=== PATIENT | male | born 1960 | race Caucasian/White ===

== ENCOUNTER 2020-05-24 15:30 | Inpatient (IN) | payer BC, MEDICAID, OTHER ==
[~2020-05-24] VITALS: Ht 182.9 cm; Wt 99.9 kg
--- NOTE | 2020-05-24 16:21 | NUR ---
SPINDLE PLUMBER: PT TO ROOM FROM LOBBY
[2020-05-24 16:27] LABS: ALANINE AMINOTRANSFERASE 50 U/L (12-78); ALBUMIN 3.5 g/dL (3.4-5.0); ANION GAP 7 mmol/L (5-15); BASOPHILS % (AUTO) 1 % (0-1); CALCIUM 8.5 mg/dL (8.5-10.1); CHLORIDE 105 mmol/L (98-107); CREATININE 1.22 mg/dL (0.7-1.3); EOSINOPHILS % (AUTO) 0 % (1-7); LYMPHOCYTES % (AUTO) 12 % (22-44); MEAN CORPUSCULAR HEMOGLOBIN 31.3 pg (27.5-34.5); MEAN CORPUSCULAR HGB CONC 32.8 g/dL (33.2-36.2); MEAN PLATELET VOLUME 8.4 fL (7.4-10.4); MONOCYTES % (AUTO) 14 % (2-9); NEUTROPHILS % (AUTO) 74 % (42-75); PLATELET COUNT 239 x10^3/uL (130-400); RED BLOOD COUNT 4.73 x10^6/uL (4.38-5.82); RED CELL DISTRIBUTION WIDTH 13.9 % (9.4-14.8)
[2020-05-24 16:31] LABS: ALKALINE PHOSPHATASE 136 U/L (45-117); BILIRUBIN,TOTAL 1.9 mg/dL (0.2-1.0); TOTAL PROTEIN 6.9 g/dL (6.4-8.2); TROPONIN I 0.017 ng/mL (0.000-0.045)
[2020-05-24] MEDS ORDERED: TAMS-11 PO (16:39)
[2020-05-24] MEDS ORDERED: MORPHINE SULFATE 4 MG/ML, 1ML ONE (16:56)
[2020-05-24] MEDS ORDERED: ONDANSETRON 2MG/ML, 2ML ONE (16:56)
[2020-05-24 16:59] LABS: MD SCAN
[2020-05-24] MEDS ORDERED: SODIUM CHLORIDE FLUSH 10ML SYR IVF ONE (17:00)
[2020-05-24] MEDS ORDERED: ONDANSETRON 2MG/ML, 2ML IVPush ONE ×2 (17:00→18:00)
[2020-05-24] MEDS ORDERED: MORPHINE SULFATE 4 MG/ML, 1ML IVPush PRN ×2 (17:00→18:00)
--- NOTE | 2020-05-24 17:21 | NUR ---
pt was med as noted for pain 10/10. Pt now rates pain 8/10. ER PROVIDER EVAL PENDING
--- NOTE | 2020-05-24 17:30 | NUR ---
ER PROVIDER AT BEDSIDE. PT ASSESSMENT, POC DISCUSSED AND QUESTIONS ANSWERED.
[2020-05-24] MEDS ORDERED: HYDROmorphone 1 MG/ML, 1ML INJ ONE (17:35)
[2020-05-24 17:44] LABS: HCT (SEDRATE) 45.2 % (39.2-51.8)
--- NOTE | 2020-05-24 17:44 | NUR ---
PT MED NOTED. 02 2L NC PLACED, CALL LIGHT W/I REACH
[2020-05-24] MEDS ORDERED: PIPERACILLIN/TAZO/PMX 3.375GM 50 ML IV ONE (18:00)
[2020-05-24] MEDS ORDERED: VANCOMYCIN PER PHARMACY MC PRN ×2 (18:00→22:00)
[2020-05-24] MEDS ORDERED: HYDROmorphone 1 MG/ML, 1ML INJ IVPush PRN (18:00)
[2020-05-24] MEDS ORDERED: PIPERACILLIN/TAZO/PMX 3.375GM 50 ML ONE (18:22)
[2020-05-24] MEDS ORDERED: VANCOMYCIN 2,500 MG in SODIUM CHLORIDE 0.9% 500 ML IV ONE (19:00)
--- NOTE | 2020-05-24 19:32 | NUR ---
BEDSIDE REPORT FROM LORA BECKWITH.
[2020-05-24] MEDS ORDERED: SODIUM CHLORIDE FLUSH 10ML SYR IVF PRN (20:30)
--- NOTE | 2020-05-24 21:49 | NUR ---
REPORT GIVEN TO YESENIA BECKWITH.
[2020-05-24] MEDS ORDERED: DOCUSATE 100 MG CAPSULE PO PRN (22:00)
[2020-05-24] MEDS ORDERED: ONDANSETRON 2MG/ML, 2ML IVPush PRN (22:00)
[2020-05-24] MEDS ORDERED: ACETAMINOPHEN 325 MG TABLET PO PRN (22:00)
[2020-05-24] MEDS ORDERED: LABETALOL 5MG/ML, 20ML IVPush PRN (22:00)
[2020-05-24 22:16] VITALS: BP 130/98
[2020-05-24] MEDS: NICOTINE 7 MG/24 HR PATCH.TD24 TD SCH (22:20)
[2020-05-24] MEDS: ENOXAPARIN 40 MG/0.4 ML SQ SCH (22:21)
[2020-05-24] MEDS ORDERED: PHARMACOKINETIC MONITORING MC PRN (22:30)
[2020-05-24] MEDS: PIPERACILLIN/TAZO/PMX 3.375GM 50 ML IV SCH (23:57)
[2020-05-25 00:33] VITALS: BP 142/107
[2020-05-25 01:42] VITALS: BP 140/104
[2020-05-25] MEDS: PIPERACILLIN/TAZO/PMX 3.375GM 50 ML IV SCH ×3 (05:40→11:45)
[2020-05-25 05:48] LABS: BASOPHILS % (AUTO) 0 % (0-1); EOSINOPHILS % (AUTO) 0 % (1-7); LYMPHOCYTES % (AUTO) 10 % (22-44); MEAN CORPUSCULAR HEMOGLOBIN 31.5 pg (27.5-34.5); MEAN CORPUSCULAR HGB CONC 32.7 g/dL (33.2-36.2); MEAN PLATELET VOLUME 8.8 fL (7.4-10.4); MONOCYTES % (AUTO) 14 % (2-9); NEUTROPHILS % (AUTO) 75 % (42-75); PLATELET COUNT 246 x10^3/uL (130-400); RED BLOOD COUNT 4.73 x10^6/uL (4.38-5.82)
[2020-05-25 05:57] LABS: CHLORIDE 103 mmol/L (98-107)
[2020-05-25 06:08] LABS: ANION GAP 8 mmol/L (5-15); CALCIUM 8.5 mg/dL (8.5-10.1); CREATININE 1.41 mg/dL (0.7-1.3)
[2020-05-25 06:27] LABS: MD SCAN
[2020-05-25 07:27] VITALS: BP 122/91
[2020-05-25] MEDS ORDERED: LORazepam 2 MG/ML, 1ML IV PRN ×5 (08:00)
[2020-05-25] MEDS ORDERED: ONDANSETRON 4 MG TABLET PO PRN (08:00)
[2020-05-25] MEDS ORDERED: BISACODYL 10 MG SUPP PR PRN (08:00)
[2020-05-25] MEDS ORDERED: DOCUSATE 100 MG CAPSULE PO PRN (08:00)
[2020-05-25] MEDS ORDERED: ONDANSETRON 2MG/ML, 2ML IVPush PRN (08:00)
[2020-05-25] MEDS: TAMSULOSIN 0.4 MG CAP.ER.24H PO SCH (08:04)
[2020-05-25] MEDS: VANCOMYCIN 1,900 MG in SODIUM CHLORIDE 0.9% 250 ML IV SCH ×2 (08:04→19:56)
[2020-05-25] MEDS: HYDROmorphone 1 MG/ML, 1ML INJ IV PRN ×3 (08:10→22:09)
[2020-05-25] MEDS: MULTIVITAMINS/MINERALS TABLET PO SCH (09:54)
[2020-05-25] MEDS: MAGNESIUM CHLORIDE 64 MG TABLET.DR PO SCH ×3 (09:54→21:46)
[2020-05-25 10:01] LABS: TROPONIN I 0.016 ng/mL (0.000-0.045)
[2020-05-25 13:26] LABS: TROPONIN I < 0.015 ng/mL (0.000-0.045)
[2020-05-25] MEDS: OXYcodone IR 5MG TABLET PO PRN (13:52)
[2020-05-25 14:12] VITALS: BP 132/101
[2020-05-25] MEDS ORDERED: GADOTERATE 10 MMOL/20 ML VIAL ONE (17:02)
[2020-05-25] MEDS: CEFTRIAXONE PMX 2GM/50ML 50 ML IVPB SCH (18:00)
[2020-05-25 18:02] LABS: TROPONIN I < 0.015 ng/mL (0.000-0.045)
[2020-05-25 19:40] LABS: AMPHETAMINE SCREEN, URINE Positive (Negative); BARBITURATE SCREEN, URINE Negative (Negative); BENZODIAZEPINE SCREEN, URINE Negative (Negative); CANNABINOID SCREEN, URINE Negative (Negative); COCAINE SCREEN, URINE Negative (Negative); METHADONE SCREEN, URINE Negative (Negative); OPIATE SCREEN, URINE Positive (Negative)
[2020-05-25 19:42] VITALS: BP 139/84
[2020-05-25 19:46] LABS: MICROSCOPIC INDICATED
[2020-05-25] MEDS: MORPHINE SULFATE 4 MG/ML, 1ML IVPush PRN (19:56)
[2020-05-25] MEDS: ENOXAPARIN 40 MG/0.4 ML SQ SCH (21:46)
[2020-05-25] MEDS: NICOTINE 7 MG/24 HR PATCH.TD24 TD SCH (21:46)
[2020-05-26 00:30] VITALS: BP 120/89
[2020-05-26] MEDS: HYDROmorphone 1 MG/ML, 1ML INJ IV PRN ×5 (03:43→21:44)
[2020-05-26] MEDS: CEFTRIAXONE PMX 2GM/50ML 50 ML IVPB SCH (05:06)
[2020-05-26 05:45] LABS: BASOPHILS % (AUTO) 1 % (0-1); EOSINOPHILS % (AUTO) 0 % (1-7); LYMPHOCYTES % (AUTO) 12 % (22-44); MEAN CORPUSCULAR HEMOGLOBIN 31.3 pg (27.5-34.5); MEAN CORPUSCULAR HGB CONC 32.5 g/dL (33.2-36.2); MEAN PLATELET VOLUME 8.8 fL (7.4-10.4); MONOCYTES % (AUTO) 14 % (2-9); NEUTROPHILS % (AUTO) 73 % (42-75); PLATELET COUNT 273 x10^3/uL (130-400); RED BLOOD COUNT 4.76 x10^6/uL (4.38-5.82); RED CELL DISTRIBUTION WIDTH 13.7 % (9.4-14.8)
[2020-05-26 05:53] LABS: ALANINE AMINOTRANSFERASE 786 U/L (12-78); ALBUMIN 3.2 g/dL (3.4-5.0); ANION GAP 8 mmol/L (5-15); CALCIUM 8.6 mg/dL (8.5-10.1); CHLORIDE 103 mmol/L (98-107); CREATININE 1.63 mg/dL (0.7-1.3)
[2020-05-26 06:06] LABS: ALKALINE PHOSPHATASE 119 U/L (45-117); BILIRUBIN,TOTAL 1.9 mg/dL (0.2-1.0); TOTAL PROTEIN 6.8 g/dL (6.4-8.2)
[2020-05-26 06:33] LABS: MD SCAN
[2020-05-26 07:27] VITALS: BP 141/81
[2020-05-26] MEDS: MULTIVITAMINS/MINERALS TABLET PO SCH (08:10)
[2020-05-26] MEDS: MAGNESIUM CHLORIDE 64 MG TABLET.DR PO SCH ×3 (08:10→21:45)
[2020-05-26] MEDS: TAMSULOSIN 0.4 MG CAP.ER.24H PO SCH (08:10)
[2020-05-26 08:38] LABS: VANCOMYCIN,TROUGH 30.7 mcg/mL (5.0-10.0)
[2020-05-26] MEDS ORDERED: THIAMINE 100 MG in DEXTROSE 5% 50 ML IVPB SCH (09:00)
[2020-05-26] MEDS: THIAMINE 100MG TABLET PO SCH (09:30)
[2020-05-26] MEDS ORDERED: FUROSEMIDE 40 MG/4 ML IV ONE (09:30)
[2020-05-26] MEDS: OXYcodone IR 5MG TABLET PO PRN (10:28)
[2020-05-26] MEDS: CEFAZOLIN PMX 1GM/50ML 50 ML IV SCH (12:40)
[2020-05-26] MEDS: CARVEDILOL 3.125 MG TABLET PO SCH (18:44)
[2020-05-26 19:15] VITALS: BP 134/95
[2020-05-26] MEDS: NICOTINE 7 MG/24 HR PATCH.TD24 TD SCH (21:43)
[2020-05-26] MEDS: ENOXAPARIN 40 MG/0.4 ML SQ SCH (21:44)
[2020-05-26] MEDS: CLINDAMYCIN PMX 900MG/50ML 50 ML IV SCH (21:55)
[2020-05-27] MEDS: OXYcodone IR 5MG TABLET PO PRN ×4 (00:38→13:08)
[2020-05-27] MEDS: CEFAZOLIN PMX 1GM/50ML 50 ML IV SCH ×2 (00:38→11:38)
[2020-05-27] MEDS: HYDROmorphone 1 MG/ML, 1ML INJ IV PRN ×4 (02:29→22:40)
[2020-05-27 03:43] VITALS: BP 132/94
[2020-05-27 04:57] LABS: BASOPHILS % (AUTO) 1 % (0-1); EOSINOPHILS % (AUTO) 1 % (1-7); LYMPHOCYTES % (AUTO) 13 % (22-44); MEAN CORPUSCULAR HEMOGLOBIN 31.9 pg (27.5-34.5); MEAN CORPUSCULAR HGB CONC 33.5 g/dL (33.2-36.2); MEAN PLATELET VOLUME 8.2 fL (7.4-10.4); MONOCYTES % (AUTO) 14 % (2-9); NEUTROPHILS % (AUTO) 71 % (42-75); PLATELET COUNT 252 x10^3/uL (130-400); RED BLOOD COUNT 4.44 x10^6/uL (4.38-5.82); RED CELL DISTRIBUTION WIDTH 13.7 % (9.4-14.8)
[2020-05-27 05:04] LABS: MD NO
[2020-05-27 05:09] LABS: ALBUMIN 2.7 g/dL (3.4-5.0); ANION GAP 6 mmol/L (5-15); CALCIUM 8.1 mg/dL (8.5-10.1); CHLORIDE 103 mmol/L (98-107)
[2020-05-27 05:14] LABS: ALANINE AMINOTRANSFERASE 509 U/L (12-78); ALKALINE PHOSPHATASE 105 U/L (45-117); BILIRUBIN,TOTAL 1.1 mg/dL (0.2-1.0); CHOLESTEROL, TOTAL 76 mg/dL (140-239); CREATININE 1.57 mg/dL (0.7-1.3); HDL CHOL % 50 % (26-37); HDL CHOLESTEROL (DIRECT) 38 mg/dL (40-60); LDL CHOLESTEROL,CALCULATED 26 mg/dL (54-169); LDL/HDL RATIO 0.7 (0.5-3.0); TRIGLYCERIDES 62 mg/dL (50-200); VLDL CHOLESTEROL 12 mg/dL (0-25)
[2020-05-27] MEDS: CLINDAMYCIN PMX 900MG/50ML 50 ML IV SCH ×3 (05:38→22:39)
[2020-05-27] MEDS: CARVEDILOL 3.125 MG TABLET PO SCH ×2 (05:43→17:32)
[2020-05-27 07:23] VITALS: BP 118/81
[2020-05-27] MEDS: THIAMINE 100MG TABLET PO SCH (09:07)
[2020-05-27] MEDS: MAGNESIUM CHLORIDE 64 MG TABLET.DR PO SCH ×3 (09:07→22:39)
[2020-05-27] MEDS: TAMSULOSIN 0.4 MG CAP.ER.24H PO SCH (09:07)
[2020-05-27] MEDS: MULTIVITAMINS/MINERALS TABLET PO SCH (09:07)
[2020-05-27] MEDS ORDERED: FUROSEMIDE 40 MG/4 ML IV ONE (09:30)
[2020-05-27 15:49] VITALS: BP 111/87
[2020-05-27 17:30] VITALS: BP 120/82
[2020-05-27 18:25] VITALS: BP 146/89
[2020-05-27] MEDS: ENOXAPARIN 40 MG/0.4 ML SQ SCH (22:39)
[2020-05-27] MEDS: NICOTINE 7 MG/24 HR PATCH.TD24 TD SCH (22:40)
[2020-05-27] MEDS: MORPHINE SULFATE 4 MG/ML, 1ML IVPush PRN (23:23)
[2020-05-28] MEDS: CEFAZOLIN PMX 1GM/50ML 50 ML IV SCH ×3 (00:27→23:46)
[2020-05-28 00:36] VITALS: BP 119/85
[2020-05-28] MEDS: OXYcodone IR 5MG TABLET PO PRN ×3 (02:12→14:36)
[2020-05-28] MEDS: HYDROmorphone 1 MG/ML, 1ML INJ IV PRN (02:54)
[2020-05-28] MEDS: CARVEDILOL 3.125 MG TABLET PO SCH ×2 (05:03→18:23)
[2020-05-28] MEDS: CLINDAMYCIN PMX 900MG/50ML 50 ML IV SCH ×3 (05:03→21:15)
[2020-05-28 06:09] LABS: CHLORIDE 101 mmol/L (98-107)
[2020-05-28 06:15] LABS: ALANINE AMINOTRANSFERASE 339 U/L (12-78); ALBUMIN 2.8 g/dL (3.4-5.0); ALKALINE PHOSPHATASE 115 U/L (45-117); ANION GAP 5 mmol/L (5-15); CALCIUM 8.5 mg/dL (8.5-10.1); CREATININE 1.31 mg/dL (0.7-1.3); TOTAL PROTEIN 6.4 g/dL (6.4-8.2)
[2020-05-28 06:45] VITALS: BP 120/82
[2020-05-28] MEDS: THIAMINE 100MG TABLET PO SCH (08:48)
[2020-05-28] MEDS: MULTIVITAMINS/MINERALS TABLET PO SCH (08:49)
[2020-05-28] MEDS: TAMSULOSIN 0.4 MG CAP.ER.24H PO SCH (08:49)
[2020-05-28] MEDS ORDERED: POTASSIUM CHLORIDE 20 MEQ TAB.ER.PRT PO ONE (09:30)
[2020-05-28] MEDS ORDERED: FUROSEMIDE 40 MG/4 ML IV ONE (09:30)
[2020-05-28] MEDS: MORPHINE SULFATE 4 MG/ML, 1ML IVPush PRN ×3 (10:14→22:50)
[2020-05-28 12:39] VITALS: BP 125/86
[2020-05-28 19:00] VITALS: BP 146/92
[2020-05-28] MEDS: NICOTINE 7 MG/24 HR PATCH.TD24 TD SCH (21:19)
[2020-05-28] MEDS: ENOXAPARIN 40 MG/0.4 ML SQ SCH (22:38)
[2020-05-29 00:30] VITALS: BP 129/89
[2020-05-29] MEDS: CLINDAMYCIN PMX 900MG/50ML 50 ML IV SCH (05:15)
[2020-05-29 05:47] LABS: ALANINE AMINOTRANSFERASE 236 U/L (12-78); ALBUMIN 2.8 g/dL (3.4-5.0); ANION GAP 4 mmol/L (5-15); CALCIUM 8.3 mg/dL (8.5-10.1); CHLORIDE 102 mmol/L (98-107); CREATININE 1.25 mg/dL (0.7-1.3)
[2020-05-29 05:49] LABS: ALKALINE PHOSPHATASE 135 U/L (45-117); TOTAL PROTEIN 6.4 g/dL (6.4-8.2)
[2020-05-29 05:56] VITALS: BP 156/98
[2020-05-29] MEDS: CARVEDILOL 3.125 MG TABLET PO SCH ×2 (06:10→16:46)
[2020-05-29 07:40] VITALS: BP 132/97
[2020-05-29] MEDS ORDERED: FUROSEMIDE 40 MG/4 ML IV ONE (08:00)
[2020-05-29] MEDS: MULTIVITAMINS/MINERALS TABLET PO SCH (09:15)
[2020-05-29] MEDS: TAMSULOSIN 0.4 MG CAP.ER.24H PO SCH (09:15)
[2020-05-29] MEDS: LISINOPRIL 10 MG TABLET PO SCH (09:16)
[2020-05-29] MEDS: THIAMINE 100MG TABLET PO SCH (09:16)
[2020-05-29] MEDS: SPIRONOLACTONE 25 MG TABLET PO SCH (09:16)
[2020-05-29] MEDS: CEFAZOLIN PMX 1GM/50ML 50 ML IV SCH ×2 (12:28→23:58)
[2020-05-29] MEDS: MORPHINE SULFATE 4 MG/ML, 1ML IVPush PRN ×2 (12:44→23:24)
[2020-05-29 13:12] VITALS: BP 123/80
[2020-05-29 18:48] VITALS: BP 132/85
[2020-05-29] MEDS: ENOXAPARIN 40 MG/0.4 ML SQ SCH (22:14)
[2020-05-29] MEDS: NICOTINE 7 MG/24 HR PATCH.TD24 TD SCH (22:14)
[2020-05-30 01:30] VITALS: BP 143/96
[2020-05-30 05:27] LABS: ALBUMIN 2.8 g/dL (3.4-5.0); ANION GAP 3 mmol/L (5-15); CALCIUM 8.9 mg/dL (8.5-10.1); CHLORIDE 106 mmol/L (98-107)
[2020-05-30 05:31] LABS: ALANINE AMINOTRANSFERASE 168 U/L (12-78); ALKALINE PHOSPHATASE 131 U/L (45-117); BILIRUBIN,TOTAL 1.1 mg/dL (0.2-1.0); CREATININE 1.15 mg/dL (0.7-1.3); TOTAL PROTEIN 6.4 g/dL (6.4-8.2)
[2020-05-30] MEDS: CARVEDILOL 3.125 MG TABLET PO SCH ×2 (05:37→17:21)
[2020-05-30] MEDS: ASPIRIN 81 MG TABLET EC PO SCH (05:37)
[2020-05-30] MEDS: OXYcodone IR 5MG TABLET PO PRN (05:41)
[2020-05-30 07:33] VITALS: BP 135/92
[2020-05-30] MEDS: SPIRONOLACTONE 25 MG TABLET PO SCH (10:01)
[2020-05-30] MEDS: LISINOPRIL 10 MG TABLET PO SCH (10:01)
[2020-05-30] MEDS: MULTIVITAMINS/MINERALS TABLET PO SCH (10:01)
[2020-05-30] MEDS: TAMSULOSIN 0.4 MG CAP.ER.24H PO SCH (10:01)
[2020-05-30] MEDS: THIAMINE 100MG TABLET PO SCH (10:01)
[2020-05-30] MEDS: MORPHINE SULFATE 4 MG/ML, 1ML IVPush PRN ×2 (10:11→23:52)
[2020-05-30] MEDS ORDERED: POTASSIUM CHLORIDE 20 MEQ TAB.ER.PRT PO ONE (10:30)
[2020-05-30] MEDS ORDERED: FUROSEMIDE 40 MG/4 ML IV ONE (10:30)
[2020-05-30] MEDS ORDERED: COLCHICINE 0.6 MG CAPSULE PO ONE (12:30)
[2020-05-30] MEDS: CEFAZOLIN PMX 1GM/50ML 50 ML IV SCH (12:31)
[2020-05-30 12:49] VITALS: BP 126/88
[2020-05-30] MEDS ORDERED: COLCHICINE 0.6 MG CAPSULE PO SCH (19:00)
[2020-05-30 19:35] VITALS: BP 121/72
[2020-05-30] MEDS: NICOTINE 7 MG/24 HR PATCH.TD24 TD SCH (23:49)
[2020-05-30] MEDS: ENOXAPARIN 40 MG/0.4 ML SQ SCH (23:50)
[2020-05-31] MEDS: CEFAZOLIN PMX 1GM/50ML 50 ML IV SCH ×2 (00:28→12:17)
[2020-05-31 01:12] VITALS: BP 143/91
[2020-05-31] MEDS: MORPHINE SULFATE 4 MG/ML, 1ML IVPush PRN ×3 (04:55→17:13)
[2020-05-31 05:25] LABS: CHLORIDE 105 mmol/L (98-107)
[2020-05-31 05:27] LABS: BASOPHILS % (AUTO) 1 % (0-1); EOSINOPHILS % (AUTO) 1 % (1-7); LYMPHOCYTES % (AUTO) 16 % (22-44); MEAN CORPUSCULAR HEMOGLOBIN 31.3 pg (27.5-34.5); MEAN CORPUSCULAR HGB CONC 33.2 g/dL (33.2-36.2); MEAN PLATELET VOLUME 7.8 fL (7.4-10.4); MONOCYTES % (AUTO) 15 % (2-9); NEUTROPHILS % (AUTO) 67 % (42-75); PLATELET COUNT 324 x10^3/uL (130-400)
[2020-05-31 05:36] LABS: ALANINE AMINOTRANSFERASE 123 U/L (12-78); ALBUMIN 2.7 g/dL (3.4-5.0); ALKALINE PHOSPHATASE 124 U/L (45-117); ANION GAP 4 mmol/L (5-15); BILIRUBIN,TOTAL 1.4 mg/dL (0.2-1.0); CALCIUM 8.5 mg/dL (8.5-10.1); CREATININE 1.05 mg/dL (0.7-1.3); TOTAL PROTEIN 6.2 g/dL (6.4-8.2)
[2020-05-31 06:07] VITALS: BP 133/92
[2020-05-31] MEDS: CARVEDILOL 3.125 MG TABLET PO SCH (06:09)
[2020-05-31] MEDS: ASPIRIN 81 MG TABLET EC PO SCH (06:09)
[2020-05-31 06:43] LABS: MD NO
[2020-05-31 07:16] VITALS: BP 142/92
[2020-05-31 08:39] LABS: HCT (SEDRATE) 44.2 % (39.2-51.8)
[2020-05-31] MEDS: SPIRONOLACTONE 25 MG TABLET PO SCH (08:46)
[2020-05-31] MEDS: LISINOPRIL 10 MG TABLET PO SCH (08:46)
[2020-05-31] MEDS: THIAMINE 100MG TABLET PO SCH (08:46)
[2020-05-31] MEDS: MULTIVITAMINS/MINERALS TABLET PO SCH (08:46)
[2020-05-31] MEDS: TAMSULOSIN 0.4 MG CAP.ER.24H PO SCH (08:47)
[2020-05-31] MEDS: COLCHICINE 0.6 MG CAPSULE PO SCH (08:47)
[2020-05-31 12:59] VITALS: BP 143/90
[2020-05-31] MEDS: CARVEDILOL 6.25 MG TABLET PO SCH (17:07)
[2020-05-31] MEDS: FUROSEMIDE 20 MG TABLET PO SCH (17:07)
[2020-05-31 18:59] VITALS: BP 123/82
[2020-05-31] MEDS: OXYcodone IR 5MG TABLET PO PRN (20:12)
[2020-06-01] MEDS: ENOXAPARIN 40 MG/0.4 ML SQ SCH
[2020-06-01] MEDS: CEFAZOLIN PMX 1GM/50ML 50 ML IV SCH ×2 (00:14→10:58)
[2020-06-01] MEDS: MORPHINE SULFATE 4 MG/ML, 1ML IVPush PRN (00:14)
[2020-06-01] MEDS: NICOTINE 7 MG/24 HR PATCH.TD24 TD SCH ×2 (00:14)
[2020-06-01 00:46] VITALS: BP 132/94
[2020-06-01 05:18] VITALS: BP 144/96
[2020-06-01] MEDS: ASPIRIN 81 MG TABLET EC PO SCH (05:23)
[2020-06-01] MEDS: CARVEDILOL 6.25 MG TABLET PO SCH (05:32)
[2020-06-01 06:26] VITALS: BP 125/76
[2020-06-01] MEDS: COLCHICINE 0.6 MG CAPSULE PO SCH (07:58)
[2020-06-01] MEDS: LISINOPRIL 10 MG TABLET PO SCH (07:58)
[2020-06-01] MEDS: THIAMINE 100MG TABLET PO SCH (07:59)
[2020-06-01] MEDS: FUROSEMIDE 20 MG TABLET PO SCH (07:59)
[2020-06-01] MEDS: SPIRONOLACTONE 25 MG TABLET PO SCH (07:59)
[2020-06-01] MEDS: MULTIVITAMINS/MINERALS TABLET PO SCH (07:59)
[2020-06-01] MEDS: TAMSULOSIN 0.4 MG CAP.ER.24H PO SCH (07:59)
[2020-06-01] MEDS: OXYcodone IR 5MG TABLET PO PRN (08:01)
[2020-06-01] MEDS ORDERED: FURO20TA3 PO (08:12)
[2020-06-01] MEDS ORDERED: SPIR25TA PO (08:12)
[2020-06-01] MEDS ORDERED: ASPI81TA45 PO (08:12)
[2020-06-01] MEDS ORDERED: TAMS-11 PO (08:12)
[2020-06-01] MEDS ORDERED: LISI-167 PO (08:12)
[2020-06-01] MEDS ORDERED: CARV6.2512 PO (08:12)
== END 2020-06-01 11:00 | disposition home or self-care (01) | DRG 871 ==
LOC: ED 21:40 → EDIP 21:52 → 3N 22:06 → DCLOUNGE 06-01 10:45
PROVIDERS: ADMIT Family Medicine; ATTEND Internal Medicine
DX: A41.01 Sepsis due to Methicillin susceptible Staphylococcus aureus (principal); N17.0 Acute kidney failure with tubular necrosis; I50.23 Acute on chronic systolic (congestive) heart failure; I42.9 Cardiomyopathy, unspecified; L03.114 Cellulitis of left upper limb; F10.10 Alcohol abuse, uncomplicated; T63.301A Toxic effect of unspecified spider venom, accidental (unintentional), initial encounter; M10.9 Gout, unspecified; L97.519 Non-pressure chronic ulcer of other part of right foot with unspecified severity; N40.0 Benign prostatic hyperplasia without lower urinary tract symptoms; M65.9 Synovitis and tenosynovitis, unspecified; K76.1 Chronic passive congestion of liver; I87.2 Venous insufficiency (chronic) (peripheral); I27.81 Cor pulmonale (chronic); I11.0 Hypertensive heart disease with heart failure; I08.1 Rheumatic disorders of both mitral and tricuspid valves; F17.210 Nicotine dependence, cigarettes, uncomplicated; F15.10 Other stimulant abuse, uncomplicated; I27.29 Other secondary pulmonary hypertension; J44.9 Chronic obstructive pulmonary disease, unspecified; X58.XXXA Exposure to other specified factors, initial encounter; Y93.89 Activity, other specified; Y92.89 Other specified places as the place of occurrence of the external cause; Y99.8 Other external cause status
CPT/HCPCS: 36415; 73130; 73630; A9575; 71045; 80048; 80053; 80061; 80074; 80202; 80299; 80307; 80320; 81001; 83036; 83735; 83880; 84484; 84550; 85025; 85379; 85651; 86140; 87040; 87077; 87147; 87186; 93005; 93306; 93970; G0378; J0690; J0696; J1170; J1650; J1940; J2405; J2543; J3370; J3411; G0480; J2270; J7040; J7050

== ENCOUNTER 2020-07-08 08:10 | Observation (INO) | payer MEDICAID ==
[~2020-07-08] VITALS: Ht 182.9 cm; Wt 95.4 kg
[~2020-07-08 08:10] MED LIST: ASPI81TA45 PO; CARV6.2512 PO; FURO20TA3 PO; LISI-167 PO; SPIR25TA PO; TAMS-11 PO
--- NOTE | 2020-07-08 08:47 | NUR ---
THIS IS A 60 YR OLD MALE PT HERE FOR DIFFICULTY BREATHING DUE TO AN EXACERBATION OF HIS CHF. PT STATES HE HAS BEEN UNABLE TO TAKE HIS MEDICATIONS DIRECTED AND THIS HAS RESULTED IN DIFFICULTY BREATHING WHILE LAYING FLAT. PT STATES FOR THE LAST 4 DAYS HE HAS HAD TO SLEEP SITTING UP. PT IN ROOM AND IN GOWN. IV ACCESS OBTAINED, CARDIAC, NIBP AND O2 MONITORING IN PLACE.
[2020-07-08] MEDS ORDERED: FUROSEMIDE 40 MG/4 ML ONE (08:54)
[2020-07-08] MEDS ORDERED: SODIUM CHLORIDE FLUSH 10ML SYR IVF ONE (09:00)
[2020-07-08] MEDS ORDERED: FUROSEMIDE 40 MG/4 ML IV ONE (09:00)
[2020-07-08 09:15] LABS: MEAN CORPUSCULAR HEMOGLOBIN 30.7 pg (27.5-34.5); MEAN CORPUSCULAR HGB CONC 32.6 g/dL (33.2-36.2); MEAN PLATELET VOLUME 8.7 fL (7.4-10.4); PLATELET COUNT 229 x10^3/uL (130-400); RED BLOOD COUNT 4.69 x10^6/uL (4.38-5.82); RED CELL DISTRIBUTION WIDTH 15.9 % (9.4-14.8)
[2020-07-08 09:23] LABS: ALBUMIN 3.4 g/dL (3.4-5.0); ANION GAP 8 mmol/L (5-15); CALCIUM 8.5 mg/dL (8.5-10.1); CHLORIDE 111 mmol/L (98-107)
[2020-07-08 09:29] LABS: ALANINE AMINOTRANSFERASE 30 U/L (12-78); ALKALINE PHOSPHATASE 159 U/L (45-117); BILIRUBIN,TOTAL 1.4 mg/dL (0.2-1.0); CREATININE 1.06 mg/dL (0.7-1.3); TOTAL PROTEIN 6.8 g/dL (6.4-8.2); TROPONIN I 0.015 ng/mL (0.000-0.045)
[2020-07-08 09:31] VITALS: BP 141/106
[2020-07-08 09:37] LABS: MD YES
[2020-07-08 09:39] LABS: <PLATELET ESTIMATE> ADEQUATE; <PLT MORPHOLOGY> NORMAL PLT MORPH; <RBC MORPHOLOGY> NORMAL; BAND#(MANUAL) 0.06 x10^3/uL; BANDS%(MANUAL) 1 % (0-7); BASOS#(MANUAL) 0.06 x10^3/uL (0-0.1); BASOS% (MANUAL) 1 % (0-1); EOS#(MANUAL) 0.11 x10^3/uL (0.0-0.4); EOS% (MANUAL) 2 % (1-7); LYMPH#(MANUAL) 1.54 x10^3/uL (1-3.4); LYMPHS% (MANUAL) 28 % (22-44); MONOS#(MANUAL) 0.33 x10^3/uL (0.3-2.7); MONOS% (MANUAL) 6 % (2-9); SEG#(MANUAL) 3.41 x10^3/uL (1.8-6.8); SEGS% (MANUAL) 62 % (42-75)
--- NOTE | 2020-07-08 09:40 | NUR ---
PT RESTING COMFORTABLY IN BED. PT UPDATED ON POC AND NO FURTHER QUESTIONS ASKED. CALL LIGHT IN REACH AND PT WATCHING TV AT THIS TIME. URINAL AT BEDSIDE WITH UNDERSTANDING THAT PT IS TO CALL BEFORE3 ATTEMPTING TO GET OUT OF BED.
[2020-07-08 11:45] VITALS: BP 162/120
[2020-07-08 13:06] VITALS: BP 156/106
[2020-07-08] MEDS ORDERED: ACETAMINOPHEN 325 MG TABLET PO PRN (13:30)
[2020-07-08] MEDS ORDERED: ONDANSETRON 2MG/ML, 2ML IVPush PRN (13:30)
[2020-07-08] MEDS ORDERED: ONDANSETRON ODT 4 MG PO PRN (13:30)
[2020-07-08] MEDS ORDERED: ENALAPRILAT 1.25 MG/ML, 2ML IVPush PRN (13:30)
[2020-07-08] MEDS: HEPARIN 5,000 UNITS/ML, 1ML SQ SCH ×2 (14:46→21:10)
[2020-07-08] MEDS ORDERED: FUROSEMIDE 20 MG TABLET PO SCH (17:00)
[2020-07-08 18:45] VITALS: BP 142/98
[2020-07-08] MEDS: CARVEDILOL 6.25 MG TABLET PO SCH (18:51)
[2020-07-08] MEDS: FUROSEMIDE 40 MG/4 ML IV SCH (21:09)
[2020-07-09 01:23] VITALS: BP 121/86
[2020-07-09] MEDS: HEPARIN 5,000 UNITS/ML, 1ML SQ SCH (05:32)
[2020-07-09] MEDS: CARVEDILOL 6.25 MG TABLET PO SCH (05:32)
[2020-07-09] MEDS ORDERED: ASPIRIN 81 MG TABLET EC PO SCH (06:00)
[2020-07-09 06:37] VITALS: BP 124/93
[2020-07-09 06:47] LABS: BASOPHILS % (AUTO) 2 % (0-1); EOSINOPHILS % (AUTO) 2 % (1-7); LYMPHOCYTES % (AUTO) 31 % (22-44); MEAN CORPUSCULAR HEMOGLOBIN 31.1 pg (27.5-34.5); MEAN CORPUSCULAR HGB CONC 33.6 g/dL (33.2-36.2); MEAN PLATELET VOLUME 9.2 fL (7.4-10.4); MONOCYTES % (AUTO) 12 % (2-9); NEUTROPHILS % (AUTO) 53 % (42-75); PLATELET COUNT 240 x10^3/uL (130-400); RED BLOOD COUNT 4.68 x10^6/uL (4.38-5.82); RED CELL DISTRIBUTION WIDTH 15.9 % (9.4-14.8)
[2020-07-09 06:59] LABS: ANION GAP 8 mmol/L (5-15); CALCIUM 8.9 mg/dL (8.5-10.1); CHLORIDE 107 mmol/L (98-107); CREATININE 1.12 mg/dL (0.7-1.3)
[2020-07-09 07:24] LABS: MD SCAN
[2020-07-09] MEDS ORDERED: ASPI81TA45 PO (07:29)
[2020-07-09] MEDS ORDERED: LISI-167 PO (07:29)
[2020-07-09] MEDS ORDERED: SPIR25TA PO (07:29)
[2020-07-09] MEDS ORDERED: FURO20TA3 PO (07:29)
[2020-07-09] MEDS ORDERED: TAMS-11 PO (07:29)
[2020-07-09] MEDS ORDERED: CARV6.2512 PO (07:29)
[2020-07-09] MEDS ORDERED: ALBU18HF PO (08:23)
[2020-07-09] MEDS ORDERED: SODI45SP4 NAS (08:24)
[2020-07-09] MEDS ORDERED: ALBUTEROL HFA 90 MCG/SPRAY INH PRN (08:30)
[2020-07-09] MEDS ORDERED: LISINOPRIL 10 MG TABLET PO SCH (09:00)
[2020-07-09] MEDS ORDERED: SPIRONOLACTONE 25 MG TABLET PO SCH (09:00)
[2020-07-09] MEDS ORDERED: TAMSULOSIN 0.4 MG CAP.ER.24H PO SCH (09:00)
[2020-07-09] MEDS ORDERED: SODIUM CHLORIDE NASAL SPRAY 45ML BOTTLE NAS SCH (09:00)
[2020-07-09] MEDS: FUROSEMIDE 40 MG/4 ML IV SCH (09:03)
== END 2020-07-09 11:00 | disposition home or self-care (01) ==
LOC: ED 09:06 → INTOOBSV 10:16 → EDIP 10:16 → 4WST 11:36 → DCLOUNGE 07-09 10:49
PROVIDERS: ADMIT Internal Medicine; ATTEND Hospitalist
DX: I11.0 Hypertensive heart disease with heart failure (principal); I50.23 Acute on chronic systolic (congestive) heart failure; N40.0 Benign prostatic hyperplasia without lower urinary tract symptoms; F10.20 Alcohol dependence, uncomplicated; F15.21 Other stimulant dependence, in remission; F17.210 Nicotine dependence, cigarettes, uncomplicated; Z91.19 Patient's noncompliance with other medical treatment and regimen; Z91.14 Patient's other noncompliance with medication regimen; Z79.899 Other long term (current) drug therapy; Z79.82 Long term (current) use of aspirin; Z59.0 Homelessness; Z63.8 Other specified problems related to primary support group
CPT/HCPCS: 36415; 71045; 80048; 80053; 83880; 84484; 85025; 93005; 96372; 96374; 96376; 99285; G0378; J1644; J1940